=== PATIENT | female | born 1965 | race Caucasian/White ===

== ENCOUNTER 2024-09-29 09:15 | Emergency (ER) | payer OTHER ==
[~2024-09-29] VITALS: Ht 167.6 cm; Wt 59.0 kg
[2024-09-29 09:29] VITALS: TEMP 97.9
[2024-09-29 10:05] LABS: COVID AG,FIA SOURCE NASAL SWAB
[2024-09-29 10:55] LABS: SARS-COV2 (COVID) ANTIGEN,FIA Negative (Negative)
[2024-09-29 10:58] LABS: INFLUENZA TYPE B NEGATIVE FOR TYPE B (NEGATIVE)
[2024-09-29 11:05] LABS: INFLUENZA TYPE A POSITIVE FOR TYPE A (NEGATIVE)
[2024-09-29 11:45] VITALS: BP 118/86; PULSE 89; RESP 18; O2SAT 98
== END 2024-09-29 11:52 | disposition home or self-care (01) ==
LOC: EMS 09:18
DX: J11.1 Influenza due to unidentified influenza virus with other respiratory manifestations (principal); F17.210 Nicotine dependence, cigarettes, uncomplicated; Z88.0 Allergy status to penicillin; Z20.822 Contact with and (suspected) exposure to COVID-19
CPT/HCPCS: 87804; 99283